=== PATIENT | female | born 1965 | race Caucasian/White ===

== ENCOUNTER 2020-01-10 00:17 | Day surgery (SDC) | payer BC, SELFPAY ==
[2020-01-07 14:53] VITALS: BMI 29.7
[2020-01-10 09:12] VITALS: BP 133/83; PULSE 66; RESP 18; TEMP 36.6; O2SAT 100; BMI 29.3
[2020-01-10] MEDS: LACTATED RINGERS 1,000 ML 150 ML IV CONT (09:31)
--- NOTE | 2020-01-10 09:48 | P.PNAN_ITS ---
Anes - Initial Pre Proc Eval Procedure: Operation Date: 01/10/20 10:00 Proposed Procedures p Screening Colonoscopy - Mario Alberto Oliver MD Date/Time: 01/10/20 09:48 Surgeon: Mario Alberto Oliver MD Pre Op Diagnosis: neoplasm screening Patient Data Age: 54 Gender: F Height: 5 ft 3 in Weight: 75.1 kg Last Vital Signs Temp 36.6 C 01/10/20 09:12 Pulse 66 01/10/20 09:12 Resp 18 01/10/20 09:12 BP 133/83 01/10/20 09:12 Pulse Ox 100 01/10/20 09:12 Allergies Allergy/AdvReac Type Severity Reaction Status Date / Time No Known Allergies Allergy Unverified 01/10/20 09:10 Home Medications Medication Instructions Recorded Confirmed Type dextroamphetamine-amphetamine 30 mg PO BID 01/07/20 01/07/20 History [Adderall] escitalopram oxalate 20 mg PO QAM 01/07/20 01/07/20 History ibuprofen 800 mg PO Q8-10H PRN 01/07/20 01/07/20 History naproxen 500 mg PO BID 01/07/20 01/07/20 History Patient hx anesthesia problems: none Family hx anesthesia problems: none [facility] Past Medical History Medical History (Updated 01/10/20 @ 09:48 by Jairo Jett MD) Anxiety Overweight Anes - Eval Final PreProcedure Day of Procedure 01/10/20 09:48 Patient weight: overweight Heart: regular rate and rhythm Lungs: clear to auscultation Airway: Mallampati scale class II Neurological: alert and oriented Last oral intake: >/= 8 hours ASA classification: II Emergent: no Anesthetic plan: proceed Anesthesia type and monitoring: general GIVS and standard monitoring Informed Consent: The patient's anesthetic plan and its attendant risks and benefits were discussed with the patient/family/POA. Questions were solicited and answers provided to the satisfaction of the patient/family/POA.
--- NOTE | 2020-01-10 10:00 | WPDGICN ---
Assessment and Plan Additional Plan This is a 54-year-old white female patient seen in evaluation at the request of CARA Kahn. Patient presents for screening colonoscopy. Her current weight appetite bowel movements are normal. She denies abdominal pain. She denies any blood in her stools. Bowel habits are regular. Family history noncontributory. Past medical history is significant for anxiety. Medications include Lexapro ibuprofen and naproxen. She has no known drug allergies. Physical exam reveals her to be alert. Vital signs stable. HEENT exam unremarkable. Lungs are clear to auscultation and percussion. Heart is without murmur or extra sounds. Abdominal exam bowel sounds are present soft nontender with no organomegaly. Digital external rectal exam normal. Impression 1. Neoplasia screen. this is advused because ofa\ age. Plan is for screening colonoscopy today GI Consult Note Consult date/time: 01/10/20 10:00 HPI: Ros Ward is a 54 year old female [facility] Past Medical History Medical History (Updated 01/10/20 @ 09:48 by Jairo Jett MD) Anxiety Overweight Meds Home Medications and Allergies Home Medications Medication Instructions Recorded Confirmed Type dextroamphetamine-amphetamine 30 mg PO BID 01/07/20 01/07/20 History [Adderall] escitalopram oxalate 20 mg PO QAM 01/07/20 01/07/20 History ibuprofen 800 mg PO Q8-10H PRN 01/07/20 01/07/20 History naproxen 500 mg PO BID 01/07/20 01/07/20 History Allergies Allergy/AdvReac Type Severity Reaction Status Date / Time No Known Allergies Allergy Unverified 01/10/20 09:10 Vital Signs Vital Signs - 24 hr 01/10/20 09:12 Temperature 36.6 C Pulse Rate 66 Respiratory Rate 18 Blood Pressure 133/83 Pulse Oximetry 100
[2020-01-10 10:26] VITALS: BP 106/65; PULSE 77; RESP 14; O2SAT 98
[2020-01-10 10:36] VITALS: BP 103/65; PULSE 68; RESP 14; O2SAT 100
[2020-01-10 10:46] VITALS: BP 119/75; PULSE 72; RESP 23; O2SAT 99
== END 2020-01-10 10:50 | disposition home or self-care (01) ==
PROVIDERS: PCP Nurse Practitioner Family; Visit Provider Internal Medicine Gastroenterology
PROC: 0DJD8ZZ Inspection of Lower Intestinal Tract, Via Natural or Artificial Opening Endoscopic (ICD-10-PCS; CPT 45378; principal; 2020-01-10 10:00)
DX: Z12.11 Encounter for screening for malignant neoplasm of colon (principal); K64.8 Other hemorrhoids; F41.9 Anxiety disorder, unspecified; E66.3 Overweight; Z68.29 Body mass index [BMI] 29.0-29.9, adult; Z79.899 Other long term (current) drug therapy
CPT/HCPCS: 45378; J2704; J7120